=== PATIENT | female | born 1975 | race Caucasian/White ===

== ENCOUNTER 2017-05-06 09:50 | Emergency (ER) | payer MEDICAID ==
[2017-05-06 09:59] VITALS: BP 124/86; PULSE 74; RESP 15; TEMP 97.7; O2SAT 98
[2017-05-06] MEDS ORDERED: SODIUM CHLOR 0.9% 1000 ML INJ 1,000 ML IV SCH (10:18)
--- NOTE | 2017-05-06 10:24 | PD ---
HPI Chief Complaint: Abdominal Pain Time Seen by Provider: 10:07 Travel History International Travel<30 days: No Contact w/Intl Traveler<30days: No Traveled to known affect area: No History of Present Illness HPI The patient is a 41-year-old female who presents to the emergency department for pelvic pain. The patient states the pain starts near her old scar and radiates up to the umbilicus. The pain is been present for one week, intermittent, associated with mild nausea, but she denies any vomiting , diarrhea, change in bowel movements. The patient has a history of previous section, tubal ligation, and cholecystectomy. The patient's last menstrual cycle was March 26, 2017, she notes a history of tubal ligation, denies . She denies any vaginal bleeding or vaginal discharge. She denies any associated dysuria, frequency, or urgency. The patient moved to [place] from [place] 3 months ago and does not have a local primary physician. Symptoms are moderate, there are no alleviating or exacerbating factors. The patient also states she has lost 26 pounds over the last 3 months after she cut [employer] products from her diet and started walking daily. [facility] Past Medical History Medical History: Denies Significant Hx Tetanus Vaccination: < 5 Years Influenza Vaccination: No ?: Unknown LMP: 03/26/17 Tubal Ligation: Yes Past Surgical History Section: Yes Cholecystectomy: Yes Social History Alcohol Use: Yes (SOCIAL) Tobacco Use: Yes (1/2 PPD) Substance Use: No Allergies-Medications (Allergen,Severity, Reaction): Coded Allergies: codeine (Verified Allergy, Severe, SWELLING, HIVES, 05/06/17) Reported Meds & Prescriptions Reported Meds & Active Scripts Active No Active Prescriptions or Reported Medications Review of Systems Except as stated in HPI: all other systems reviewed are Neg General / Constitutional: No: Fever Gastrointestinal: Positive: Nausea, Abdominal Pain, No: Vomiting, Diarrhea Genitourinary: Positive: Pelvic Pain, No: Urgency, Frequency, Dysuria, Hematuria, Discharge, Vaginal Bleeding Skin: No Rash Physical Exam Narrative GENERAL: Awake, alert, nontoxic-appearing 41-year-old female who appears her stated age and is in no acute respiratory distress. SKIN: Focused skin assessment warm/dry. HEAD: Atraumatic. Normocephalic. EYES: No injection or drainage. ENT: No nasal bleeding or discharge. Mucous membranes pink and moist. NECK: Trachea midline. No JVD. CARDIOVASCULAR: Regular rate and rhythm. No murmur appreciated. RESPIRATORY: No accessory muscle use. Clear to auscultation. Breath sounds equal bilaterally. GASTROINTESTINAL: Abdomen soft, mild suprapubic tenderness and bilateral lower quadrant tenderness but no guarding or rigidity. Back: No CVA tenderness. Pelvic: The exam was performed in the presence of a female nurse. External examination reveals no rashes or lesions. Speculum examination reveals scant thick white vaginal discharge within the vault. Cervix is closed. No bleeding. No adnexal tenderness. No cervical motion tenderness. MUSCULOSKELETAL: No obvious deformities. No clubbing. No cyanosis. No edema. NEUROLOGICAL: Awake and alert. No obvious cranial nerve deficits. Motor grossly within normal limits. Normal speech. PSYCHIATRIC: Appropriate mood and affect; insight and judgment normal. Data Data Last Documented VS Vital Signs Date Time Temp Pulse Resp B/P (MAP) Pulse Ox O2 Delivery O2 Flow Rate FiO2 05/06/17 10:34 98 Room Air 05/06/17 09:59 97.7 74 15 124/86 (99) Orders Orders Complete Blood Count With Diff (05/06/17 10:18) Comprehensive Metabolic Panel (05/06/17 10:18) Lipase (05/06/17 10:18) Lactic Acid (05/06/17 10:18) Urinalysis - C+S If Indicated (05/06/17 10:18) Ct Abd/Pel W/O Iv Contrast (05/06/17 10:18) Iv Access Insert/Monitor (05/06/17 10:18) Ecg Monitoring (05/06/17 10:18) Oximetry (05/06/17 10:18) Ondansetron Inj (Zofran Inj) (05/06/17 10:30) Sodium Chlor 0.9% 1000 Ml Inj (Ns 1000 M (05/06/17 10:18) Sodium Chloride 0.9% Flush (Ns Flush) (05/06/17 10:30) Ketorolac Inj (Toradol Inj) (05/06/17 10:30) Ed Urine Pregnancytest Poc (05/06/17 10:18) Wet Prep Profile (05/06/17 11:32) Labs Laboratory Tests Test 05/06/17 10:25 05/06/17 10:40 05/06/17 12:13 Urine Collection Type CLEAN CATCH Urine Color YELLOW Urine Turbidity SLIGHT Urine pH 6.0 Urine Specific [place] 1.027 Urine Protein TRACE mg/dL Urine Glucose (UA) NEG mg/dL Urine Ketones NEG mg/dL Urine Occult Blood TRACE Urine Nitrite NEG Urine Bilirubin NEG Urine Leukocyte Esterase NEG Urine RBC 0-3 /hpf Urine WBC 0-2 /hpf Urine Squamous Epithelial Cells > 8 /hpf Urine Calcium Oxalate Crystals MOD /hpf Urine Amorphous Sediment MOD Microscopic Urinalysis Comment CULT NOT INDICATED Urine Collection Time 1025 White Blood Count 9.9 TH/MM3 Red Blood Count 3.83 MIL/MM3 Hemoglobin 11.8 GM/DL Hematocrit 34.5 % Mean Corpuscular Volume 90.1 FL Mean Corpuscular Hemoglobin 30.8 PG Mean Corpuscular Hemoglobin Concent 34.2 % Red Cell Distribution Width 12.9 % Platelet Count 227 TH/MM3 Mean Platelet Volume 9.3 FL Neutrophils (%) (Auto) 71.9 % Lymphocytes (%) (Auto) 17.2 % Monocytes (%) (Auto) 7.1 % Eosinophils (%) (Auto) 3.3 % Basophils (%) (Auto) 0.5 % Neutrophils # (Auto) 7.2 TH/MM3 Lymphocytes # (Auto) 1.7 TH/MM3 Monocytes # (Auto) 0.7 TH/MM3 Eosinophils # (Auto) 0.3 TH/MM3 Basophils # (Auto) 0.0 TH/MM3 CBC Comment DIFF FINAL Differential Comment Blood Urea Nitrogen 10 MG/DL Creatinine 0.67 MG/DL Random Glucose 92 MG/DL Total Protein 7.1 GM/DL Albumin 3.3 GM/DL Calcium Level 8.4 MG/DL Alkaline Phosphatase 93 U/L Aspartate Amino Transf (AST/SGOT) 9 U/L Alanine Aminotransferase (ALT/SGPT) 17 U/L Total Bilirubin 0.7 MG/DL Sodium Level 139 MEQ/L Potassium Level 3.3 MEQ/L Chloride Level 105 MEQ/L Carbon Dioxide Level 27.5 MEQ/L Anion Gap 7 MEQ/L Estimat Glomerular Filtration Rate 97 ML/MIN Lactic Acid Level 1.2 mmol/L Lipase 116 U/L Clue Cells (Wet Prep) NONE SEEN Vaginal Trichomonas (Wet Prep) NONE SEEN Vaginal Yeast (Wet Prep) NONE SEEN MDM Medical Decision Making Medical Screen Exam Complete: Yes Emergency Medical Condition: Yes Medical Record Reviewed: Yes Interpretation(s) CT of the abdomen and pelvis reveals negative noncontrast CT abdomen/pelvis. Last Impressions Abdomen/Pelvis CT 05/06/17 1018 Signed Impressions: Service Date/Time: Saturday, May 06, 2017 10:57 - CONCLUSION: Negative noncontrast CT abdomen/pelvis. Angelo Mccormick MD Laboratory Tests Test 05/06/17 10:25 05/06/17 10:40 05/06/17 12:13 Urine Collection Type CLEAN CATCH Urine Color YELLOW Urine Turbidity SLIGHT Urine pH 6.0 Urine Specific [place] 1.027 Urine Protein TRACE mg/dL Urine Glucose (UA) NEG mg/dL Urine Ketones NEG mg/dL Urine Occult Blood TRACE Urine Nitrite NEG Urine Bilirubin NEG Urine Leukocyte Esterase NEG Urine RBC 0-3 /hpf Urine WBC 0-2 /hpf Urine Squamous Epithelial Cells > 8 /hpf Urine Calcium Oxalate Crystals MOD /hpf Urine Amorphous Sediment MOD Microscopic Urinalysis Comment CULT NOT INDICATED Urine Collection Time 1025 White Blood Count 9.9 TH/MM3 Red Blood Count 3.83 MIL/MM3 Hemoglobin 11.8 GM/DL Hematocrit 34.5 % Mean Corpuscular Volume 90.1 FL Mean Corpuscular Hemoglobin 30.8 PG Mean Corpuscular Hemoglobin Concent 34.2 % Red Cell Distribution Width 12.9 % Platelet Count 227 TH/MM3 Mean Platelet Volume 9.3 FL Neutrophils (%) (Auto) 71.9 % Lymphocytes (%) (Auto) 17.2 % Monocytes (%) (Auto) 7.1 % Eosinophils (%) (Auto) 3.3 % Basophils (%) (Auto) 0.5 % Neutrophils # (Auto) 7.2 TH/MM3 Lymphocytes # (Auto) 1.7 TH/MM3 Monocytes # (Auto) 0.7 TH/MM3 Eosinophils # (Auto) 0.3 TH/MM3 Basophils # (Auto) 0.0 TH/MM3 CBC Comment DIFF FINAL Differential Comment Blood Urea Nitrogen 10 MG/DL Creatinine 0.67 MG/DL Random Glucose 92 MG/DL Total Protein 7.1 GM/DL Albumin 3.3 GM/DL Calcium Level 8.4 MG/DL Alkaline Phosphatase 93 U/L Aspartate Amino Transf (AST/SGOT) 9 U/L Alanine Aminotransferase (ALT/SGPT) 17 U/L Total Bilirubin 0.7 MG/DL Sodium Level 139 MEQ/L Potassium Level 3.3 MEQ/L Chloride Level 105 MEQ/L Carbon Dioxide Level 27.5 MEQ/L Anion Gap 7 MEQ/L Estimat Glomerular Filtration Rate 97 ML/MIN Lactic Acid Level 1.2 mmol/L Lipase 116 U/L Clue Cells (Wet Prep) NONE SEEN Vaginal Trichomonas (Wet Prep) NONE SEEN Vaginal Yeast (Wet Prep) NONE SEEN Differential Diagnosis Differential diagnosis includes UTI, pyelonephritis, nephrolithiasis, PID, cervicitis, , diverticulitis, ovarian carcinoma. Narrative Course IV was established, labs are drawn and sent, and the patient was placed on cardiac telemetry monitoring and continuous pulse oximetry monitoring. The patient was administered Toradol, Zofran, and IV fluids. Bedside UA test was obtained and UA was sent to lab. Bedside UA test was negative. UA is unremarkable. White count is normal. LFTs and lipase are negative. CT of the abdomen and pelvis was negative. Pelvic exam was performed in the presence of a female nurse, was essentially unremarkable. Wet prep is negative. No definitive cause of the patient's pelvic pain, however, parameters are within normal limits and reassuring. The patient is advised to follow-up with an outpatient primary physician and/or active directory architect. Diagnosis Primary Impression: Pelvic pain in female Patient Instructions: General Instructions Additional Instructions: Medications as directed. Follow-up with your primary physician and/or active directory architect. Return if symptoms worsen or progress. Please provide the patient a copy of her labs and CT results at discharge. Med/Other Pt SpecificInfo: Prescription(s) given Scripts Ibuprofen (Ibuprofen) 600 Mg Tab 600 MG PO Q6H Y for Pain/Inflammation, #20 TAB 0 Refills Prov: Pelon Byrd MD 05/06/17 Disposition: 01 DISCHARGE HOME Condition: Stable Pelon Byrd MD May 06, 2017 10:24
[2017-05-06] MEDS ORDERED: ONDANSETRON HCL 4 MG/2 ML VIAL IVP ONE (10:30)
[2017-05-06] MEDS ORDERED: KETOROLAC TROMETHAMINE 30 MG/ML (IVP) VIAL IVP ONE (10:30)
[2017-05-06] MEDS ORDERED: SODIUM CHLORIDE 0.9% FLUSH 10 ML FLUSH IV FLUSH PRN (10:30)
[2017-05-06 10:34] VITALS: O2SAT 98
[2017-05-06 10:59] LABS: BILIRUBIN, URINE NEG (NEG); BLOOD, URINE TRACE (NEG); GLUCOSE,URINE NEG (NEG); KETONE, URINE NEG (NEG); NITRITE,URINE NEG (NEG); URINE LEUKOCYTE ESTERASE NEG (NEG)
[2017-05-06 11:05] LABS: CHLORIDE 105 MEQ/L (98-107); SODIUM (NA) 139 MEQ/L (136-145)
[2017-05-06 11:08] LABS: URINE COLOR YELLOW (YELLW/STRAW)
[2017-05-06 11:09] LABS: ALBUMIN 3.3 GM/DL (3.4-5.0); BICARBONATE 27.5 MEQ/L (21.0-32.0); BLOOD UREA NITROGEN 10 MG/DL (7-18); CALCIUM 8.4 MG/DL (8.5-10.1); GLUCOSE,RANDOM 92 MG/DL (74-106); LIPASE 116 U/L (73-393)
[2017-05-06 11:09] LABS: AMORPHOUS SEDIMENT, URINE MOD; CALCIUM OXALATE CRYSTALS,URINE MOD /hpf; RBC, URINE 0-3 /hpf (0-3); SQUAMOUS EPITHELIAL CELL URINE > 8 /hpf (0-5); WBC, URINE 0-2 /hpf (0-5)
[2017-05-06 11:12] LABS: ALT (GPT) 17 U/L (10-53); AST (GOT) 9 U/L (15-37); CREATININE 0.67 MG/DL (0.50-1.00); GLOMERULAR FILTRATION RATE 97 ML/MIN (>89)
[2017-05-06 11:14] LABS: TOTAL BILIRUBIN ADULT 0.7 MG/DL (0.2-1.0); TOTAL PROTEIN 7.1 GM/DL (6.4-8.2)
[2017-05-06 11:15] LABS: ALKALINE PHOSPHATASE 93 U/L (45-117)
--- NOTE | 2017-05-06 11:54 | RADRPT ---
EXAM DATE/TIME: 05/06/2017 10:57 [facility] COMPARISON: No previous studies available for comparison. INDICATIONS : Pelvic pain for one week. ORAL CONTRAST: No oral contrast ingested. RADIATION DOSE: 22.23 CTDIvol (mGy) MEDICAL HISTORY : None SURGICAL HISTORY : Cholecystectomy. Tubal ligation. section. ENCOUNTER: Initial ACUITY: 1 week PAIN SCALE: 7/10 LOCATION: pelvis TECHNIQUE: Volumetric scanning of the abdomen and pelvis was performed. Using automated exposure control and ad justment of the mA and/or kV according to patient size, radiation dose was kept as low as reasonably achievable to obtain optimal diagnostic quality images. DICOM format image data is available electro nically for review and comparison. FINDINGS: LOWER LUNGS: The visualized lower lungs are clear. LIVER: Homogeneous density without lesion. There is no dilation of the biliary tree. Hemoclips the cameron f rom prior cholecystectomy. SPLEEN: Normal size without lesion. PANCREAS: Within normal limits. KIDNEYS: Normal in size and shape. There is no mass, stone, or hydronephrosis. ADRENAL GLANDS: Within normal limits. VASCULAR: There is no aortic aneurysm. BOWEL/MESENTERY: No dilated loops of small or large bowel. The appendix is identified in the right lower quadrant, co ursing medially; normal dimension. ABDOMINAL WALL: Within normal limits. RETROPERITONEUM: There is no lymphadenopathy. BLADDER: No wall thickening or mass. REPRODUCTIVE: Anteverted uterus. No evidence of free fluid. INGUINAL: There is no lymphadenopathy or hernia. MUSCULOSKELETAL: Within normal limits for patient age. CONCLUSION: Negative noncontrast CT abdomen/pelvis. Angelo Mccormick MD on May 06, 2017 at 11:40 Board Certified Radiologist. This report was verified electronically.
[2017-05-06 11:56] LABS: AUTOMATED NEUTROPHIL # 7.2 TH/MM3 (1.8-7.7); BASOPHIL % 0.5 % (0.0-2.0); EOSINOPHIL # 0.3 TH/MM3 (0-0.4); EOSINOPHIL % 3.3 % (0.0-4.0); HEMATOCRIT 34.5 % (35.0-46.0); HEMOGLOBIN 11.8 GM/DL (11.6-15.3); LYMPH % 17.2 % (9.0-44.0); LYMPHOCYTE # 1.7 TH/MM3 (1.0-4.8); MEAN CELL VOLUME 90.1 FL (80.0-100.0); MEAN CORPUSCULAR HEMOGLOBIN 30.8 PG (27.0-34.0); MEAN CORPUSCULAR HGB CONC 34.2 % (32.0-36.0); MEAN PLATELET VOLUME 9.3 FL (7.0-11.0); MONO % 7.1 % (0.0-8.0); MONOCYTE # 0.7 TH/MM3 (0-0.9); NEUT % 71.9 % (16.0-70.0); PLATELET COUNT 227 TH/MM3 (150-450); RED BLOOD COUNT 3.83 MIL/MM3 (4.00-5.30); RED CELL DISTRIBUTION WIDTH 12.9 % (11.6-17.2); WHITE BLOOD COUNT 9.9 TH/MM3 (4.0-11.0)
[2017-05-06] MEDS ORDERED: IBUP-232 PO (12:41)
== END 2017-05-06 13:06 | disposition home or self-care (01) ==
LOC: PHED 09:50
DX: R10.2 Pelvic and perineal pain (principal)
CPT/HCPCS: 74176; 80053; 81001; 83605; 83690; 84703; 85025; 87210; 96374; 96375; 99285; J1885; J2405; J7030